=== PATIENT | female | born 1990 | race Caucasian/White ===

== ENCOUNTER 2022-01-03 15:01 | Emergency (ER) | payer OTHER | END 2022-01-03 16:35 | disposition home or self-care (01) | LOC: FER 15:01 | DX: S40.021A Contusion of right upper arm, initial encounter (principal); F17.200 Nicotine dependence, unspecified, uncomplicated; V43.52XA Car driver injured in collision with other type car in traffic accident, initial encounter | CPT/HCPCS: 71046; 73060; J1885 ==